=== PATIENT | male | born 1985 | race Two or more races ===

== ENCOUNTER 2018-04-01 11:47 | Emergency (ER) | payer SELFPAY ==
[~2018-04-01] VITALS: Ht 170.2 cm; Wt 70.4 kg
[2018-04-01 15:41] VITALS: BP 130/68
[2018-04-01] MEDS ORDERED: ACETAMINOPHEN 325MG TABLET PO ONE (16:00)
== END 2018-04-01 16:58 | disposition home or self-care (01) ==
LOC: ER 11:47
DX: S80.11XA Contusion of right lower leg, initial encounter (principal); W51.XXXA Accidental striking against or bumped into by another person, initial encounter; Y93.66 Activity, soccer; Y92.89 Other specified places as the place of occurrence of the external cause
CPT/HCPCS: 73590; 73610; 73630; 99283